=== PATIENT | female | born 1965 | race Caucasian/White ===

== ENCOUNTER 2017-01-19 13:28 | Emergency (ER) | payer OTHER ==
[2017-01-19 12:01] LABS: BASOPHILS 0.4 %; BASOPHILS ABSOLUTE 0.04 10/3/uL (0.0-0.16); EOSINOPHILS 0.8 %; EOSINOPHILS ABSOLUTE 0.09 10/3/uL (0.0-0.53); ER CBC TAT 0 Hrs 05 Mins; HEMATOCRIT 40.5 % (36.0-48.0); HEMOGLOBIN 13.8 g/dL (12.0-16.0); IMMATURE GRANULOCYTES 0.4 %; IMMATURE GRANULOCYTES ABSOLUTE 0.04 10/3/uL (0.0-0.11); LYMPHOCYTES 23.3 %; LYMPHOCYTES ABSOLUTE 2.58 10/3/uL (0.67-4.30); MEAN CORPUS HGB CONC 34.1 g/dL (32.0-36.0); MEAN PLATELET VOLUME 9.2 fL (9.2-13.0); MONOCYTES 3.9 %; MONOCYTES ABSOLUTE 0.43 10/3/uL (0.21-1.20); NEUTROPHILS 71.2 %; NEUTROPHILS ABSOLUTE 7.87 10/3/uL (2.02-8.40); PLATELET COUNT 323 10/3/uL (150-400); RBC DISTRIBUTION WIDTH 13.1 % (12.0-16.0); RED CELL COUNT 4.45 10/6/uL (4.0-5.6); WHITE BLOOD CELLS 11.1 10/3/uL (4.5-10.5)
[2017-01-19 12:05] LABS: MANUAL DIFF NO %
[2017-01-19 12:12] LABS: PARTIAL THROMBO TIME 29.2 SEC (22.5-37.2); PROTIME (NOT ORD) 12.8 SEC (12.0-14.5)
[2017-01-19 12:17] LABS: BUN (BLOOD UREA NITROGEN) 11 MG/DL (6-23); CHEST PAIN PROFILE TAT 0 Hrs 21 Mins; CHLORIDE, SERUM 106 MMOL/L (96-112); CO2 (CARBON DIOXIDE) 25 MMOL/L (24-34); CREATININE 0.69 MG/DL (0.55-1.02); GFR AFRICAN AMERICAN 116 ML/MIN (>=60); GFR NON AFRICAN AMERICAN 100 ML/MIN (>=60); GLUCOSE, SERUM 206 MG/DL (60-99); POTASSIUM, SERUM 4.2 MMOL/L (3.5-5.3); SODIUM, SERUM 142 MMOL/L (135-148); TROPONIN I <0.02 NG/ML (<0.05)
[~2017-01-19 13:28] MED LIST: ACET500CAP PO; AMARYL1 MG PO; CELEXA40 MG PO; FLONASE NAS; GLUCOPHAGE1000 MG PO; GLUCPH PO; INHALERS; LOFIBRA54 MG PO; PR25 PO; PROBIOTIC OTC PO; VANCO1P IV; VITAMIN D31000 UNIT PO; ZANTAC 150 PO; ZANTAC150 MG PO; ZESTRIL20 MG PO; ZESTRIL30 MG PO; ZYRTEC ALLGY10 MG PO; [UNRECOGNIZED DRUG - CODE] IV
[2017-02-14] MEDS ORDERED: PRILOSEC40 MG PO (16:59)
[2017-02-14] MEDS ORDERED: AMARYL1 MG PO (17:00)
== END 2017-01-19 16:06 | disposition home or self-care (01) ==
LOC: ER 13:28
PROVIDERS: Emergency Medicine
DX: M50.122 Cervical disc disorder at C5-C6 level with radiculopathy (principal); M25.78 Osteophyte, vertebrae; K82.8 Other specified diseases of gallbladder; I10 Essential (primary) hypertension; E11.9 Type 2 diabetes mellitus without complications; F32.9 Major depressive disorder, single episode, unspecified; K21.9 Gastro-esophageal reflux disease without esophagitis; Z87.442 Personal history of urinary calculi; Z90.710 Acquired absence of both cervix and uterus; Z88.0 Allergy status to penicillin; Z88.2 Allergy status to sulfonamides; Z88.5 Allergy status to narcotic agent; Z79.84 Long term (current) use of oral hypoglycemic drugs; Z79.899 Other long term (current) drug therapy
CPT/HCPCS: 71020; 72125; 80048; 83735; 84484; 85025; 85610; 85730; 93005; 96374; 96375; 99285; J1885; J2800; J2930

== ENCOUNTER 2017-02-02 19:47 | Emergency (ER) | payer OTHER ==
[2017-02-02 18:42] LABS: BASOPHILS 0.4 %; BASOPHILS ABSOLUTE 0.05 10/3/uL (0.0-0.16); EOSINOPHILS ABSOLUTE 0.11 10/3/uL (0.0-0.53); ER CBC TAT 0 Hrs 05 Mins; HEMATOCRIT 40.4 % (36.0-48.0); HEMOGLOBIN 14.1 g/dL (12.0-16.0); IMMATURE GRANULOCYTES 0.6 %; IMMATURE GRANULOCYTES ABSOLUTE 0.07 10/3/uL (0.0-0.11); LYMPHOCYTES 38.7 %; LYMPHOCYTES ABSOLUTE 4.31 10/3/uL (0.67-4.30); MEAN CORPUS HGB CONC 34.9 g/dL (32.0-36.0); MEAN CORPUSCULAR HEMOGLOB 31.3 pg (26.0-34.0); MEAN CORPUSCULAR VOLUME 89.6 fL (80-100); MEAN PLATELET VOLUME 9.3 fL (9.2-13.0); MONOCYTES 4.9 %; MONOCYTES ABSOLUTE 0.54 10/3/uL (0.21-1.20); NEUTROPHILS 54.4 %; NEUTROPHILS ABSOLUTE 6.05 10/3/uL (2.02-8.40); PLATELET COUNT 324 10/3/uL (150-400); RBC DISTRIBUTION WIDTH 13.3 % (12.0-16.0); RED CELL COUNT 4.51 10/6/uL (4.0-5.6); WHITE BLOOD CELLS 11.1 10/3/uL (4.5-10.5)
[2017-02-02 18:45] LABS: MANUAL DIFF NO %
[2017-02-02 18:47] LABS: ASCORBIC ACID (UR NOT ORDER) NEG (NEG); BILIRUBIN, URINE NEGATIVE (NEG); ER URINALYSIS TAT 0 Hrs 10 Mins; KETONE, URINE NEGATIVE (NEG); LEUKOCYTE ESTERASE(NOT OR NEG (NEG); NITRITE (URINE) NEG (NEG); WBC (NOT ORDERED) (RFLEX) 1 (0-5)
[2017-02-02 18:58] LABS: ALBUMIN 3.7 G/DL (3.5-5.0); ALKALINE PHOSPHATASE 113 U/L (45-117); BUN (BLOOD UREA NITROGEN) 11 MG/DL (6-23); CALCIUM, SERUM 9.7 MG/DL (8.5-10.4); CHLORIDE, SERUM 102 MMOL/L (96-112); CO2 (CARBON DIOXIDE) 28 MMOL/L (24-34); CREATININE 0.79 MG/DL (0.55-1.02); GFR AFRICAN AMERICAN 100 ML/MIN (>=60); GFR NON AFRICAN AMERICAN 86 ML/MIN (>=60); SGPT(ALT) 43 U/L (5-65); SODIUM, SERUM 141 MMOL/L (135-148); TOTAL BILIRUBIN 0.2 MG/DL (0-1.2); TOTAL PROTEIN 8.1 G/DL (6.0-8.5)
[2017-02-02 19:00] LABS: A/G RATIO 0.8 (0.7-1.9); GLOBULIN 4.4 G/DL (2.5-4.1); GLUCOSE, SERUM 158 MG/DL (60-99); SGOT(AST) 24 U/L (5-40)
[2017-02-14] MEDS ORDERED: PRILOSEC40 MG PO (16:59)
[2017-02-14] MEDS ORDERED: AMARYL1 MG PO (17:00)
== END 2017-02-02 19:50 | disposition home or self-care (01) ==
LOC: ER 19:47
PROVIDERS: Physician Assistant Medical
DX: R10.11 Right upper quadrant pain (principal); R10.31 Right lower quadrant pain; E11.65 Type 2 diabetes mellitus with hyperglycemia; I10 Essential (primary) hypertension; K21.9 Gastro-esophageal reflux disease without esophagitis; F32.9 Major depressive disorder, single episode, unspecified; Z87.442 Personal history of urinary calculi; F17.200 Nicotine dependence, unspecified, uncomplicated; Z88.0 Allergy status to penicillin; Z88.2 Allergy status to sulfonamides; Z88.8 Allergy status to other drugs, medicaments and biological substances; Z79.84 Long term (current) use of oral hypoglycemic drugs; Z79.899 Other long term (current) drug therapy
CPT/HCPCS: 74176; 80053; 81001; 82962; 85025; 99285

== ENCOUNTER 2017-02-17 11:36 | Day surgery (SDC) | payer OTHER ==
[2017-02-15 12:56] LABS: BASOPHILS 0.7 %; BASOPHILS ABSOLUTE 0.07 10/3/uL (0.0-0.16); EOSINOPHILS 0.9 %; EOSINOPHILS ABSOLUTE 0.09 10/3/uL (0.0-0.53); HEMATOCRIT 41.9 % (36.0-48.0); HEMOGLOBIN 14.5 g/dL (12.0-16.0); IMMATURE GRANULOCYTES 0.4 %; IMMATURE GRANULOCYTES ABSOLUTE 0.04 10/3/uL (0.0-0.11); LYMPHOCYTES 41.6 %; LYMPHOCYTES ABSOLUTE 4.01 10/3/uL (0.67-4.30); MEAN CORPUS HGB CONC 34.6 g/dL (32.0-36.0); MEAN CORPUSCULAR HEMOGLOB 30.9 pg (26.0-34.0); MEAN CORPUSCULAR VOLUME 89.3 fL (80-100); MEAN PLATELET VOLUME 9.3 fL (9.2-13.0); MONOCYTES 5.1 %; MONOCYTES ABSOLUTE 0.49 10/3/uL (0.21-1.20); NEUTROPHILS 51.3 %; NEUTROPHILS ABSOLUTE 4.94 10/3/uL (2.02-8.40); PLATELET COUNT 325 10/3/uL (150-400); RBC DISTRIBUTION WIDTH 12.8 % (12.0-16.0); RED CELL COUNT 4.69 10/6/uL (4.0-5.6); WHITE BLOOD CELLS 9.6 10/3/uL (4.5-10.5)
[2017-02-15 12:57] LABS: MANUAL DIFF NO %
[2017-02-15 13:13] LABS: ALBUMIN 4.2 G/DL (3.5-5.0); CALCIUM, SERUM 9.6 MG/DL (8.5-10.4); CHLORIDE, SERUM 105 MMOL/L (96-112); CO2 (CARBON DIOXIDE) 26 MMOL/L (24-34); CREATININE 0.73 MG/DL (0.55-1.02); GFR AFRICAN AMERICAN 110 ML/MIN (>=60); GFR NON AFRICAN AMERICAN 95 ML/MIN (>=60); GLUCOSE, SERUM 185 MG/DL (60-99); POTASSIUM, SERUM 4.3 MMOL/L (3.5-5.3); SGOT(AST) 22 U/L (5-40); SGPT(ALT) 51 U/L (5-65); SODIUM, SERUM 141 MMOL/L (135-148); TOTAL BILIRUBIN 0.3 MG/DL (0-1.2); TOTAL PROTEIN 7.5 G/DL (6.0-8.5)
[2017-02-15 13:14] LABS: A/G RATIO 1.3 (0.7-1.9); ALKALINE PHOSPHATASE 97 U/L (45-117); BUN (BLOOD UREA NITROGEN) 15 MG/DL (6-23); GLOBULIN 3.3 G/DL (2.5-4.1)
--- NOTE | ~2017-02-17 | PREOPHP ---
PreOp History and Physical [id number] [place]. [address] NAME: JOSE C FISHER : 63 STATUS : PRE [facility] PAT#: [id number] AGE: 51 ADM/REG DATE : MR#: [id number] REPORT SERV DATE: 02/16/17 DICTATED BY: ELIZABETH FAYE III DATE: 02/11/17 REPORT STATUS : Draft TRANSCRIBED BY: MODL DATE: 02/11/17 HISTORY OF PRESENT ILLNESS: This 51-year-old female comes to the operating room for laparoscopic cholecystectomy, possible laparotomy for symptomatic cholelithiasis and cholecystitis. The patient complains of a several-week history of right flank pain. This pain is associated with nausea and food intolerance. The patient also describes some right upper quadrant abdominal pain. She recently required evaluation in the emergency room for acute biliary colic. The patient has gallstones with gallbladder sludge and is felt to have symptomatic cholelithiasis and cholecystitis. She comes to the operating room now for laparoscopic cholecystectomy, possible laparotomy. PAST MEDICAL HISTORY: 1. Hypertension. 2. Nvx-ppivcoo-ixtetrlrz diabetes mellitus. 3. Asthma. 4. Atherosclerotic disease of the abdominal aorta. 5. Umbilical hernia, which is not symptomatic and which the patient does not desire to have repaired. ALLERGIES: PENICILLIN AND OXYCODONE. MEDICATIONS: Metformin, vitamin D3, lisinopril, omeprazole, and glimepiride. SOCIAL HISTORY: The patient lives in [place], [place]. She is . She has a current history of tobacco abuse and previous history of alcohol use. REVIEW OF SYSTEMS: The patient complains of reflux, indigestion, nausea, vomiting, diarrhea, constipation, numbness, tingling, frequent headaches, joint pain, and back pain. Her 14-point review of systems is otherwise unremarkable. FAMILY HISTORY: Remarkable for diabetes, hypertension, and stroke. PHYSICAL EXAMINATION: GENERAL: This is a female, in no acute distress. She is alert and oriented x3. VITAL SIGNS: Blood pressure 140/81, pulse 92, temperature 97.5. HEENT: Unremarkable. Cranial nerves 2 through 12 were normal. LUNGS: Clear. CARDIAC: Normal. ABDOMEN: Soft. She has a small umbilical hernia, which is reducible. She has mild right upper quadrant tenderness. EXTREMITIES: Normal without edema. LABORATORY DATA: Gallbladder ultrasound confirms gallbladder sludge. HIDA scan shows an PreOp History and Physical [address] [address] NAME: JOSE C FISHER : 63 STATUS : PRE [facility] PAT#: [id number] AGE: 51 ADM/REG DATE : MR#: [id number] REPORT SERV DATE: 02/16/17 DICTATED BY: ELIZABETH FAYE III DATE: 02/11/17 REPORT STATUS : Draft TRANSCRIBED BY: MODSae DATE: 02/11/17 abnormal ejection fraction of 17%. ASSESSMENT: 1. A 51-year-old female with symptomatic cholelithiasis, cholecystitis and recent episode of biliary colic, requiring evaluation in the emergency room. 2. Hypertension. 3. Iua-snittcb-dhvqdfqoz diabetes mellitus. 4. History of umbilical hernia, not symptomatic. 5. Asthma. 6. Tobacco abuse with probable chronic obstructive pulmonary disease secondary to tobacco abuse. PLAN: The patient comes to the operating room now for laparoscopic cholecystectomy, possible laparotomy. This procedure, the risks, benefits, and alternatives including, but not limited to the risk for bleeding, infection, common bile duct injury, bile leak, retained common bile stone, enterotomy or injury to any abdominal structure, the definite possible need for laparotomy with possible persistence of her symptoms unrelieved by surgery, the possibility of postop diarrhea or incisional hernia, and unforeseen complications including deep venous thrombosis, pulmonary embolus, myocardial infarction, stroke, pneumonia, and have been fully and completely explained to the patient at length prior to surgery. The fact that this is a major operation with risk for major morbidity and mortality has been explained, as well as expected length of recovery with both open laparoscopic procedures. The possible persistence of her symptoms unrelieved by surgery has been explained. Regarding the umbilical hernia, the possibility of incarceration or strangulation which could be life threatening if this occurs and if it is not repaired has been explained, but the patient prefers not to have the hernia repaired at this time. The patient's questions have been answered. She clearly understands the risks and agrees to surgery as planned. RAVINDRA/PERRI Elziabeth Faye III, M.D. / [id number]
--- NOTE | ~2017-02-17 | OP ---
Record Of Operation [facility] [address] [place]. [address] NAME: JOSE C FISHER : 63 STATUS : [facility]#: [id number] AGE: 51 ADM/REG DATE : 02/17/17 MR#: [id number] REPORT SERV DATE: 02/18/17 DICTATED BY: ELIZABETH VILLARREAL III DATE: 02/18/17 REPORT STATUS : Draft TRANSCRIBED BY: MODSae DATE: 02/18/17 DATE OF PROCEDURE: 02/17/2017 PREOPERATIVE DIAGNOSES: Symptomatic cholelithiasis and cholecystitis and umbilical hernia. POSTOPERATIVE DIAGNOSES: Symptomatic cholelithiasis and cholecystitis and umbilical hernia. PROCEDURES: Laparoscopic cholecystectomy with repair of umbilical hernia. SURGEON: Elizabeth Villarreal M.D. ANESTHESIA: General with intubation. COMPLICATIONS: None. ESTIMATED BLOOD LOSS: Less than 30 mL. SPECIMENS: Gallbladder. DRAINS: None. LAP AND SPONGE COUNT: Correct x3. BRIEF HISTORY: This 51-year-old female presented with an evidence for symptomatic cholelithiasis and cholecystitis. It was felt that laparoscopic cholecystectomy, possible laparotomy, was indicated. The patient also had an umbilical hernia, which she decided that at the time of surgery, she would like to have it repaired. This procedure, the risks, benefits, and alternatives, including but not limited to the risk for bleeding, infection, common bile duct injury, bile leak, retained common bile stone, enterotomy, or injury to any abdominal structure, the definite possible need for laparotomy, possible persistence of her symptoms unrelieved by surgery, possibility of postoperative diarrhea or incisional hernia, and unforeseen complications including deep venous thrombosis, pulmonary embolus, myocardial infarction, stroke, and pneumonia and were fully and completely explained to the patient and family at length prior to the surgery. The fact that this was a major operation with risk for major morbidity and mortality, and no guarantee for relief of her symptoms was explained to her. The expected length of recovery with both open laparoscopic procedures was explained. The patient had questions, which were answered. She fully understood the risks and agreed to the surgery as planned. DESCRIPTION OF PROCEDURE: After being properly identified, and after discussing the risks and benefits of the surgery with the patient and family again in the preoperative area, and after identifying the hernia with her in the preoperative area, the patient was taken to the operating room, and placed in the supine position on the operating room table. General anesthesia was administered, and she was intubated without difficulty. The abdomen was prepped and draped sterilely in the usual fashion. After an appropriate "time-out" per [facility] standards, a small curvilinear incision was made along the inferior border of the Record Of Operation [address] [place]. [address] NAME: JOSE C FISHER : 63 STATUS : [facility]#: [id number] AGE: 51 ADM/REG DATE : 02/17/17 MR#: [id number] REPORT SERV DATE: 02/18/17 DICTATED BY: ELIZABETH VILLARREAL III DATE: 02/18/17 REPORT STATUS : Draft TRANSCRIBED BY: PERRI DATE: 02/18/17 zenia. The skin and fascia on either sides were elevated with towel clips. A Veress needle was placed through the incision into the peritoneal cavity. Correct position of the needle in the peritoneal cavity was confirmed by the hanging drop test. The abdominal cavity was then insufflated to about 13 mmHg of carbon dioxide. Correct position of the air in the peritoneal cavity was confirmed by palpation. The Veress needle was removed and replaced with a 10 mm trocar. The laparoscope was placed through this. The patient was placed in reverse Trendelenburg position and to her left. A second 10 mm trocar was placed just below the xiphoid process, to the right of falciform ligament, under direct vision with the laparoscope. Two 5 mm trocars were placed along the right subcostal margin, one in the midaxillary line, and the other in the midclavicular line. These were also placed under direct vision with the laparoscope. The upper abdomen was inspected. The gallbladder appeared to be chronically diseased. The gallbladder chapman were thickened and inflamed with adhesions between the gallbladder and omentum consistent with cholecystitis. The liver and remainder of the upper abdomen otherwise were unremarkable as far as we could determine through the laparoscope. The appropriate instruments were placed through the trocars. Using sharp dissection, the adhesions between the gallbladder and the omentum were carefully divided. The gallbladder was then grasped and the infundibulum of the gallbladder was retracted laterally and inferiorly, so as to expose the triangle of Calot. Using sharp dissection, the cystic duct was carefully and meticulously defined proximally and distally. The cystic duct was fairly long. The junction of the cystic duct and common bile duct was appreciated. It was not skeletonized. The cystic artery was similarly defined proximally and distally. The fibrous and fatty tissue between these structures was divided so as to clearly identify the critical view of safety in triangle of Calot. The lower portion of the gallbladder was dissected away from the liver so as to clearly identify the critical angle of safety. Once these structures were clearly defined, the cystic duct was clipped with two clips on the common bile duct side, one on the gallbladder side, all placed as close to the gallbladder as possible. The cystic duct was then divided between these clips as close to the gallbladder as possible. We elected not to perform a cholangiogram because there was no preoperative or intraoperative biliary dilatation because the patient's preoperative liver enzymes were normal and because her biliary anatomy was clearly defined. The triangle of Calot and critical view of safety were clearly defined. The cystic artery was then similarly clipped and divided as close to the gallbladder as possible. Using the spatula and the cautery, the gallbladder was carefully dissected from the liver bed. This went very well. Before the gallbladder was completely removed, the gallbladder bed and portal areas were irrigated numerous times with saline. The saline was aspirated dry. This process was repeated several times until the hemostasis was meticulously and thoroughly assured in all areas. It was also assured that the clips in the portal area were in good position. There was no extravasation of bile from any accessory bile ducts. Once this was assured, gallbladder and the Endopouch were brought out through the infraumbilical incision after placing the laparoscope through the subxiphoid trocar. The lateral two trocars were removed, and these three lower trocar sites were inspected on the underside for hemostasis with the laparoscope. Once this was assured, the subxiphoid trocar was removed under direct vision with the laparoscopic tissue to assure hemostasis in this incision. Then we turned our attention to the umbilical hernia. Using sharp dissection, the navel was elevated superiorly. The skin and subcutaneous tissue around the defect anteriorly was fully mobilized. The defect itself was fairly small, about 0.5 cm to 1 cm in size. Record Of Operation [facility] [address] [facility] [place]. [address] NAME: JOSE C FISHER : 63 STATUS : [facility] PAT#: [id number] AGE: 51 ADM/REG DATE : 02/17/17 MR#: [id number] REPORT SERV DATE: 02/18/17 DICTATED BY: ELIZABETH VILLARREAL III DATE: 02/18/17 REPORT STATUS : Draft TRANSCRIBED BY: PERRI DATE: 02/18/17 The fascial edges, once clearly defined, were reapproximated with interrupted 0 Prolene sutures. The fascia came together nicely with no tension. Hemostasis was assured. The subcutaneous tissue was closed with the running 3-0 chromic suture. The skin incisions were closed with the running subcuticular 4-0 Monocryl stitches. They were injected with 0.5% Marcaine. Dressings were applied. Anesthesia was reversed, and the patient was taken to the recovery room in stable condition. She tolerated the procedure well. Her family was informed the results of the surgery. The patient was discharged when stable and comfortable, and able to void and ambulate. Her family was advised that she should keep her wound clean and dry for 48 hours, that she should not drive for three to four days after surgery or while using narcotics, that she should resume her usual medications, and that she should not perform any heavy lifting for four to five weeks. They are advised she should monitor her glucose particularly carefully for the next several days. She was asked to return in two weeks for followup or sooner if any nausea, vomiting, fever, chills, wound drainage, abdominal pain, weakness, or other problems prior to that time. She was given a prescription for Percocet 7.5 one t.i.d., #12, as needed for pain, which she was advised not to use while driving. RAVINDRA/PERRI Elizabeth Villarreal III, M.D. / [id number] CC: Amber Baker III, M.D., D.A.B.S.M
[~2017-02-17 11:36] MED LIST changes: +PRILOSEC40 MG PO
[2017-02-17 18:06] LABS: HEMATOCRIT 37.9 % (36.0-48.0); HEMOGLOBIN 13.2 g/dL (12.0-16.0)
== END 2017-02-17 19:56 | disposition home or self-care (01) ==
LOC: SDC 11:36
PROVIDERS: Surgery
PROC: 0FT44ZZ Resection of Gallbladder, Percutaneous Endoscopic Approach (ICD-10-PCS; principal; 2017-02-17 13:45)
PROC: 0WQF0ZZ Repair Abdominal Wall, Open Approach (ICD-10-PCS; 2017-02-17 13:45)
DX: K81.1 Chronic cholecystitis (principal); K42.9 Umbilical hernia without obstruction or gangrene; I10 Essential (primary) hypertension; E11.9 Type 2 diabetes mellitus without complications; J45.909 Unspecified asthma, uncomplicated; I70.0 Atherosclerosis of aorta; J44.9 Chronic obstructive pulmonary disease, unspecified; I73.9 Peripheral vascular disease, unspecified; K21.9 Gastro-esophageal reflux disease without esophagitis; Z98.890 Other specified postprocedural states; Z88.0 Allergy status to penicillin; Z88.5 Allergy status to narcotic agent; Z87.891 Personal history of nicotine dependence; Z88.2 Allergy status to sulfonamides; Z98.51 Tubal ligation status; Z90.710 Acquired absence of both cervix and uterus
CPT/HCPCS: 71020; 80053; 82962; 85014; 85018; 85025; 88304; 93005; A9270-GY; J0690; J1170; J2250; J2405; J2710; J3010